=== PATIENT | male | born 1955 | race American Indian/Alaskan Native ===

== ENCOUNTER 2021-12-01 07:56 | Emergency (ER) | payer BC ==
[2021-12-01 09:07] VITALS: BP 131/70
--- NOTE | 2021-12-01 11:24 | Emergency Department Report ---
- General Chief Complaint: Upper Respiratory Infection Stated Complaint: COUGH Time Seen by Provider: 12/01/21 10:55 Source: patient Mode of arrival: Ambulatory Limitations: No Limitations - History of Present Illness Initial Comments: 66-year-old male who denies any significant past medical history presents to the ER today with complaints of URI symptoms and cough. Patient states that symptoms started about 2 to 3 days ago. He reports a productive cough with associated "slight" headache as well as rhinorrhea and nasal congestion. He denies any fever or chills. He states that his fiance is also sick with similar symptoms but she has not gotten tested for COVID-19. He states that she was seen here earlier for her symptoms and was diagnosed with a viral illness. He denies any recent travel. He denies any chest pain, shortness of breath, wheezing, or any additional symptoms. He does admit that he smokes tobacco but he denies any other significant past medical history. MD Complaint: cough -: days(s) (2-3 days ago) - Related Data Previous Rx's Medication Instructions Recorded Last Taken Type Benzonatate [Tessalon Perles] 100 mg PO Q8HR #30 cap 12/01/21 Unknown Rx Cetirizine HCl [ZyrTEC 10mg cap] 10 mg PO DAILY #30 cap 12/01/21 Unknown Rx Allergies Allergy/AdvReac Type Severity Reaction Status Date / Time No Known Allergies Allergy Verified 12/01/21 09:05 ED Review of Systems ROS: Stated complaint: COUGH Other details as noted in HPI Comment: All other systems reviewed and negative Constitutional: denies: chills, fever Eyes: denies: eye pain, eye discharge, vision change ENT: congestion, other. denies: ear pain, throat pain Respiratory: cough (Rhinorrhea). denies: orthopnea, shortness of breath, SOB with exertion, SOB at rest, wheezing Cardiovascular: denies: chest pain, palpitations, dyspnea on exertion, edema, sy ncope, paroxysmal nocturnal dyspnea Endocrine: no symptoms reported Gastrointestinal: denies: abdominal pain, nausea, vomiting, diarrhea, constipation, hematemesis, hematochezia Skin: denies: rash, lesions, change in color, change in hair/nails, pruritus Neurological: headache. denies: weakness, paresthesias, abnormal gait, vertigo Psychiatric: as per HPI. denies: auditory hallucinations, visual hallucinations, homicidal thoughts, suicidal thoughts Hematological/Lymphatic: denies: easy bleeding, easy bruising, swollen glands ED Past Medical Hx - Past Medical History Previous Medical History?: No - Surgical History Past Surgical History?: No - Medications Home Medications: Home Medications Medication Instructions Recorded Confirmed Last Taken Type Benzonatate [Tessalon Perles] 100 mg PO Q8HR #30 cap 12/01/21 Unknown Rx Cetirizine HCl [ZyrTEC 10mg cap] 10 mg PO DAILY #30 cap 12/01/21 Unknown Rx ED Physical Exam - General Limitations: No Limitations General appearance: alert, in no apparent distress - Head Head exam: Present: atraumatic, normocephalic, normal inspection - Eye Eye exam: Present: normal appearance, PERRL, EOMI Pupils: Present: normal accommodation - ENT ENT exam: Present: normal exam, mucous membranes moist, TM's normal bilaterally - Neck Neck exam: Present: normal inspection, full ROM. Absent: meningismus - Respiratory Respiratory exam: Present: normal lung sounds bilaterally. Absent: respiratory distress, wheezes, rales, rhonchi - Cardiovascular Cardiovascular Exam: Present: regular rate, normal rhythm, normal heart sounds - GI/Abdominal GI/Abdominal exam: Present: soft. Absent: distended, tenderness, guarding, rebound - Neurological Exam Neurological exam: Present: alert, oriented X3, CN II-XII intact, normal gait - Psychiatric Psychiatric exam: Present: normal affect, normal mood - Skin Skin exam: Present: intact ED Course Vital Signs 12/01/21 09:05 Temperature 98.9 F Pulse Rate 78 Respiratory 16 Rate Blood Pressure 131/70 O2 Sat by Pulse 96 Oximetry ED Medical Decision Making - Medical Decision Making 66-year-old male who denies any significant past medical history presents to the ER today with complaints of URI symptoms and cough. Patient states that symptoms started about 2 to 3 days ago. He reports a productive cough with associated "slight" headache as well as rhinorrhea and nasal congestion. He denies any fever or chills. He states that his fiance is also sick with similar symptoms but she has not gotten tested for COVID-19. He states that she was seen here earlier for her symptoms and was diagnosed with a viral illness. He denies any recent travel. He denies any chest pain, shortness of breath, wheezing, or any additional symptoms. He does admit that he smokes tobacco but he denies any other significant past medical history. 1132: Patient is well-appearing, nontoxic and not in significant distress. He appears well-hydrated. He is not in any respiratory distress. His chest is clear to auscultation. He is neurologically intact with a normal gait. He has no meningeal signs on exam. His vital signs are reviewed and are stable. Patient symptoms likely related to nonspecific viral illness but also could be related to COVID-19. Discussed suspected diagnosis with patient. Recommend that he get outpatient COVID-19 test. Patient treatment will geared to mainly his symptoms. Patient expressed understanding for instructions and agree with plan. Patient stable at time of discharge. - Differential Diagnosis Nonspecific viral URI, COVID-19, flu Critical care attestation.: If time is entered above; I have spent that time in minutes in the direct care of this critically ill patient, excluding procedure time. ED Disposition Clinical Impression: Viral URI with cough Disposition: 01 HOME / SELF CARE / HOMELESS Is pt being admited?: No Does the pt Need Aspirin: No Condition: Stable Instructions: Upper Respiratory Infection, Adult, [id number], Cough, Adult, [id number] Additional Instructions: Your symptoms are likely related to nonspecific viral illness. COVID-19 is in the differential as to a cause of your symptoms. I do recommend that you get a COVID-19 test once you leave here today. You can get a test at either a local urgent care, clinic, or pharmacy. You can take the Zyrtec and the Tessalon Perles as prescribed to help with your symptoms. You can take Tylenol and ibuprofen for any pain or fever. Lots of fluids. Follow-up with your PCP. Return to the ER if your symptoms worsens in any way. Prescriptions: Benzonatate [Tessalon Perles] 100 mg PO Q8HR #30 cap Cetirizine HCl [ZyrTEC 10mg cap] 10 mg PO DAILY #30 cap Referrals: PRIMARY CARE, [Primary Care Provider] - 3-5 Days Time of Disposition: 11:32
== END 2021-12-01 11:49 | disposition home or self-care (01) ==
LOC: ED 07:56
DX: J06.9 Acute upper respiratory infection, unspecified (principal); R05.9 Cough, unspecified
CPT/HCPCS: 99282